=== PATIENT | male | born 1955 | race Caucasian/White ===

== ENCOUNTER 2019-04-01 12:04 | Day surgery (SDC) | payer BC ==
[2019-03-31 13:59] LABS: BASOPHILS % (AUTO) 0.3 % (0-1); EOSINOPHILS # (AUTO) 0.3 X10'3 (0-0.9); EOSINOPHILS % (AUTO) 5.3 % (0-6); LYMPHOCYTES # (AUTO) 1.9 X10'3 (1.1-4.8); LYMPHOCYTES % (AUTO) 33.2 % (21-51); MEAN CORPUSCULAR HEMOGLOBIN 29.5 PG (27.0-31.0); MEAN CORPUSCULAR VOLUME 86.9 FL (78-98); MEAN PLATELET VOLUME 8.2 FL (7.4-10.4); MONOCYTES # (AUTO) 0.6 X10'3 (0-0.9); MONOCYTES % (AUTO) 10.3 % (2-12); NEUTROPHILS # (AUTO) 2.9 X10'3 (1.8-7.7); NEUTROPHILS % (AUTO) 50.9 % (42-75); PRE OP HEMATOCRIT 42.8 % (42.0-52.0); PRE OP HEMOGLOBIN 14.6 g/dL (14.0-17.9); PRE OP PLATELET COUNT 205 X10'3 (140-440); RED BLOOD COUNT 4.93 X10'6 (4.70-6.10); RED CELL DISTRIBUTION WIDTH 13.4 % (11.5-14.5)
[2019-03-31 14:09] LABS: ALBUMIN 4.2 G/DL (3.4-5.0); ALBUMIN/GLOBULIN RATIO 1.4 (1.1-1.5); ALKALINE PHOSPHATASE 77 IU/L (46-116); BLOOD UREA NITROGEN 9 MG/DL (7-18); BUN/CREATININE RATIO 8.7 (5.4-32.0); CHLORIDE 106 MMOL/L (99-107); CREATININE 1.03 MG/DL (0.60-1.10); PRE OP ANION GAP 7 (8-16); PRE OP AST 29 U/L (10-37); PRE OP BILIRUB, TOTAL 0.3 MG/DL (0.0-1.0); PRE OP GLUCOSE 127 MG/DL (70-104); PRE OP POTASSIUM 3.7 MMOL/L (3.4-5.1); PRE OP SODIUM 143 MMOL/L (135-145); TOTAL CARBON DIOXIDE 29.7 MMOL/L (24-32); TOTAL PROTEIN 7.2 G/DL (6.4-8.2); eGFR 73 ML/MIN
[2019-03-31 14:12] LABS: PRE OP PROTIME 10.3 SECONDS (9.0-12.0)
[2019-03-31 14:16] LABS: PRE OP ALT 92 U/L (30-65)
[2019-04-01] VITALS (27 sets, daily range): BP systolic 118–160; BP diastolic 62–90
[~2019-04-01] VITALS: Ht 172.7 cm; Wt 87.5 kg
[~2019-04-01 12:04] MED LIST: ALPR-624 PO; LOSA50TA3 PO; SIMV20TA5 PO; TADA5TAB2 PO; TRAM50TA2 PO; TURM500C4 PO; VITA100D6 PO
[2019-04-01] MEDS ORDERED: BUPIVAcaine/PF 2.5 mg/ml (0.25%) 30ml vial ONE (13:33)
[2019-04-01] MEDS ORDERED: LIDOcaine 1% 30ml preserv. free vial ONE (13:33)
[2019-04-01] MEDS ORDERED: sevoflurane 250ml liquid IH ONE (13:42)
[2019-04-01] MEDS ORDERED: midazolam 2 mg/2 ml injection ONE (13:48)
[2019-04-01] MEDS ORDERED: fentaNYL/PF 50MCG/1 ML 2ML syringe ONE (13:48)
[2019-04-01] MEDS ORDERED: propofol inj 20 ML IV ONE (13:49)
[2019-04-01] MEDS ORDERED: famotidine 20mg tablet PO ONE (14:00)
[2019-04-01] MEDS ORDERED: cefazolin/dext.iso 2gm/100 ML IV ONE (14:00)
[2019-04-01] MEDS ORDERED: ringers solution, lacted 1,000 ML IV SCH ×2 (14:00→14:35)
[2019-04-01] MEDS ORDERED: INDOCYANINE GREEN 25 MG VIAL IV ONE ×2 (14:10→14:20)
[2019-04-01] MEDS ORDERED: ePHEDrine 50MG/ML INJ. ONE (14:17)
[2019-04-01] MEDS ORDERED: rocuronium 10mg/ml inj IV ONE (14:17)
[2019-04-01] MEDS ORDERED: morphine 4 MG/ML inj SYRINge IV PRN ×2 (14:35)
[2019-04-01] MEDS ORDERED: ondansetron/PF 4mg/2ml inj IV PRN (14:35)
[2019-04-01] MEDS ORDERED: proCHLORperazine 10 MG/2 ml inj IV PRN (14:35)
[2019-04-01] MEDS ORDERED: meperidine/PF 25mg/ml syringe IV PRN ×2 (14:35)
[2019-04-01] MEDS ORDERED: acetaminophen 1,000mg/100ml IV 100 ML IV ONE (14:38)
[2019-04-01] MEDS ORDERED: neostigmine methylsulfate 1 MG/ML 10ml vial ONE (14:54)
[2019-04-01] MEDS ORDERED: glycopyrrolate 0.2mg/ml inj ONE (14:54)
--- NOTE | 2019-04-01 15:11 | NUR ---
Received from OR via BED, accompanied by Anesthesiologist DR BAILEY and report given by Anesthesiologist. PT DROWSY, DENIES PAIN, ABDOMEN W/4 LAP SITES W/BANDAIDS CDI. Addendum: 04/01/19 at 1628 by Loreta Rincon RN Amended: Links added.
[2019-04-01] MEDS: meperidine/PF 25mg/ml syringe IV PRN ×3 (16:32→16:59)
[2019-04-01] MEDS ORDERED: HYDROcodone/acetaminophen 5mg/325mg tablet PO PRN ×2 (16:50)
[2019-04-01] MEDS ORDERED: proCHLORperazine 10 MG/2 ml inj IV ONE (18:25)
--- NOTE | 2019-04-01 19:31 | NUR ---
D/C INSTRUCTIONS GIVEN AND GONE OVER W/PT-PTS , BOTH VERBALIZE UNDERSTANDING, PT AMBULATED TO BATHROOM FOR VOID PRIOR TO D/C. PT D/CD TO HOME VIA W/C TO PRIVATE VEHICLE W/O INCIDENT. Addendum: 04/01/19 at 1948 by Loreta Rincon RN Amended: Links added.
== END 2019-04-01 19:31 | disposition home or self-care (01) ==
LOC: PAS 12:04
PROVIDERS: ATTEND Surgery
DX: K80.10 Calculus of gallbladder with chronic cholecystitis without obstruction (principal); I10 Essential (primary) hypertension; E78.5 Hyperlipidemia, unspecified; G89.29 Other chronic pain; M54.5 Low back pain; F41.9 Anxiety disorder, unspecified; Z91.041 Radiographic dye allergy status; Z91.013 Allergy to seafood; Z88.8 Allergy status to other drugs, medicaments and biological substances; Z98.890 Other specified postprocedural states; Z79.01 Long term (current) use of anticoagulants; Z79.899 Other long term (current) drug therapy
CPT/HCPCS: 36415; 47563; 64415; 80053; 82948; 85025; 85610; 85730; 93005; J0131; J0780; J2001; J2175; J2250; J2405; J2704; J2710; J3010; J3490; J7120; A4215; A4618; A7000